=== PATIENT | male | born 1975 | race African-American/Black ===

== ENCOUNTER 2018-10-18 10:32 | Emergency (ER) | payer MEDICAID, OTHER ==
[2018-10-18 10:45] VITALS: BP 143/96
--- NOTE | 2018-10-18 11:36 | XRAY Report ---
Reason: crush injury to left thumb x 1 weeks ago. pain/swe Procedure Date: 10/18/2018 Accession Number: [id number] / [id number] Procedure: XR - Finger(s) LT CPT Code: FULL RESULT: EXAM: LEFT FIRST DIGIT RADIOGRAPHY EXAM DATE: 10/18/2018 11:03 AM. CLINICAL HISTORY: Crush injury to left thumb x 1 weeks ago. Pain/swelling. COMPARISON: XR HAND MIN 3 VIEWS 07/12/2008 3:16 PM. TECHNIQUE: 3 views. FINDINGS: Bones: Normal. No fracture or bone lesion. Joints: Normal. No subluxations. Soft Tissues: Mild prominence of soft tissue. IMPRESSION: No fracture or dislocation is detected. RADIA
[2018-10-18] MEDS ORDERED: LIDOCAINE 2% 10 ML MDV SUBQ STA (11:55)
--- NOTE | 2018-10-18 11:56 | ED Physician Documentation ---
PD HPI UPPER EXT INJURY - Stated complaint Stated Complaint: LEFT THUMB INJ - Chief complaint Chief Complaint: Trauma Ext - History obtained from History obtained from: Patient - History of Present Illness Location: Left, Finger (thumb) Where injury occurred: Work Timing - onset: How many weeks ago (1) Timing - duration: Weeks (1) Timing - details: Abrupt onset Pain level max: 5 Pain level now: 4 Improved by: Rest Worsened by: Moving, Palpating Associated symptoms: Swelling. No: Weakness, Numbness, Tingling Contributing factors: No: Anticoagulated - Additonal information Additional information: pt is right handed. Crush injury to the left thumb a week ago, increasing pain and swelling. Bruising under the nail. Review of Systems Constitutional: denies: Fever Neurologic: denies: Focal weakness, Numbness PD PAST MEDICAL HISTORY - Past Medical History Cardiovascular: Hypertension Respiratory: None Endocrine/Autoimmune: None GI: None : None HEENT: None Psych: None Musculoskeletal: None Derm: None - Past Surgical History Past Surgical History: Yes Ortho: Arthroscopic surgery - Present Medications Home Medications: Ambulatory Orders Medication Instructions Recorded Confirmed No Known Home Medications 02/23/16 10/18/18 - Allergies Allergies/Adverse Reactions: Allergies Allergy/AdvReac Type Severity Reaction Status Date / Time No Known Drug Allergies Allergy Verified 10/18/18 10:45 - Social History Does the pt smoke?: No Smoking Status: Current every day smoker Does the pt drink ETOH?: Yes Does the pt have substance abuse?: No - Immunizations Immunizations are current?: Yes - POLST Patient has POLST: No PD ED PE NORMAL - Vitals Vital signs reviewed: Yes - General General: Alert and oriented X 3 - HEENT HEENT: Moist mucous membranes - Derm Derm: Warm and dry - Extremities Extremities: Other (L thumb - 30% subungual hematoma under the nail. Also has a paronychia involving approximately three quarters of the thumb. No cellulitis or lymphangitic spread. NVI) Results - Vitals Vitals: Vital Signs - 24 hr 10/18/18 10:41 Temperature 36.4 C L Heart Rate 95 Respiratory 14 Rate Blood Pressure 143/96 H O2 Saturation 97 Oxygen O2 Source Room air Procedures - General procedure General procedure: L thumb - 2% lidocaine was used to perform a digital ring block of the left thumb. This achieved excellent anesthesia. Electrocautery was then used to trephinate the nail and into the subungual hematoma evacuated. A #11 blade scalpel was then placed under the nail fold and the pus drained from the paronychia. Patient tolerated very well. Dressing applied. No complications PD MEDICAL DECISION MAKING - ED course Complexity details: considered differential, d/w patient ED course: 42-year-old male with a left thumb paronychia and subungual hematoma. These were both treated. No significant cellulitis. Patient counseled regarding signs and symptoms for which I believe and urgent re-evaluation would be necessary. Patient with good understanding of and agreement to plan and is comfortable going home at this time This document was made in part using voice recognition software. While efforts are made to proofread this document, sound alike and grammatical errors may occur. Departure - Departure Disposition: 01 Home, Self Care Clinical Impression: Paronychia, Subungual hematoma Condition: Good Instructions: ED Fingernail Infec, ED Hematoma Subungual Follow-Up: your,doctor in 1 week [Other] Comments: Continue to soak the finger 2-3 times a day in warm water. He can apply antibiotic ointment twice a day. Use Motrin or Tylenol for pain. Return if you worsen. Discharge Date/Time: 10/18/18 12:52
[2018-10-18] MEDS ORDERED: BACITRACIN OINT TOP STA (12:21)
[2018-10-18] MEDS ORDERED: IBUPROFEN 800 MG TABLET PO STA (12:31)
== END 2018-10-18 12:52 | disposition home or self-care (01) ==
LOC: ED 10:32
DX: L03.012 Cellulitis of left finger (principal); S60.012A Contusion of left thumb without damage to nail, initial encounter; W23.0XXA Caught, crushed, jammed, or pinched between moving objects, initial encounter; Y99.0 Civilian activity done for income or pay; I10 Essential (primary) hypertension; F17.200 Nicotine dependence, unspecified, uncomplicated
CPT/HCPCS: 1040M; 11740; 73140; 99283

== ENCOUNTER 2018-10-26 10:42 | Emergency (ER) | payer OTHER, MEDICAID ==
[2018-10-26 10:53] VITALS: BP 130/87
--- NOTE | 2018-10-26 12:03 | ED Physician Documentation ---
PD HPI UPPER EXT INJURY - Stated complaint Stated Complaint: FOLLOW UP L THUMB - Chief complaint Chief Complaint: Trauma Ext - History obtained from History obtained from: Patient - History of Present Illness Location: Left (He crushed his left thumb in a drawer at work a little over 2 weeks ago. He needs paperwork done that says he can go back to work. He has no specific complaints. Feels like the thumb is all better. He has no pain.) Review of Systems Constitutional: reports: Reviewed and negative Cardiac: reports: Reviewed and negative Respiratory: reports: Reviewed and negative PD PAST MEDICAL HISTORY - Past Medical History Past Medical History: Yes Cardiovascular: Hypertension Respiratory: None Neuro: None Endocrine/Autoimmune: None GI: None : None HEENT: None Psych: None Musculoskeletal: None Derm: None - Past Surgical History Past Surgical History: Yes Ortho: Arthroscopic surgery - Present Medications Home Medications: Ambulatory Orders Medication Instructions Recorded Confirmed No Known Home Medications 02/23/16 10/18/18 - Allergies Allergies/Adverse Reactions: Allergies Allergy/AdvReac Type Severity Reaction Status Date / Time No Known Drug Allergies Allergy Verified 10/26/18 10:51 - Social History Does the pt smoke?: No Smoking Status: Never smoker Does the pt drink ETOH?: Yes Does the pt have substance abuse?: No - Immunizations Immunizations are current?: Yes - POLST Patient has POLST: No PD ED PE NORMAL - Vitals Vital signs reviewed: Yes - General General: Alert and oriented X 3, No acute distress - Extremities Extremities: Other (There is still a subungual hematoma of the left thumb, but no tenderness or limited range of motion.) - Neuro Neuro: Alert and oriented X 3, Normal speech Results - Vitals Vitals: Vital Signs - 24 hr 10/26/18 10:50 Temperature 36.7 C Heart Rate 70 Respiratory 16 Rate Blood Pressure 130/87 H O2 Saturation 98 Oxygen O2 Source Room air PD MEDICAL DECISION MAKING - ED course ED course: L&I paperwork completed with full return to duty noted. Departure - Departure Disposition: 01 Home, Self Care Clinical Impression: Subungual hematoma Condition: Good Record reviewed to determine appropriate education?: Yes Comments: Return for new or worsening symptoms. Your blood pressure was elevated today on check into the emergency department. This does not mean that you have hypertension, it is a common phenomenon to come to the emergency department and have elevated blood pressure. I recommend that you see your primary care physician within the week to have it rechecked when you are feeling better. Forms: Activity restrictions
== END 2018-10-26 12:05 | disposition home or self-care (01) ==
LOC: ED 10:42
DX: S60.012D Contusion of left thumb without damage to nail, subsequent encounter (principal); W23.0XXD Caught, crushed, jammed, or pinched between moving objects, subsequent encounter; I10 Essential (primary) hypertension
CPT/HCPCS: 1040M; 99282

== ENCOUNTER 2020-02-10 12:15 | Outpatient (CLI) | payer MEDICAID, OTHER ==
[2020-02-10 20:24] LABS: TRICHOMONAS VAGINALIS DNA NEGATIVE (NEGATIVE)
== END 2020-02-10 23:59 | disposition home or self-care (01) ==
LOC: LAB.R 12:15
PROVIDERS: ATTEND Registered Nurse
DX: R30.9 Painful micturition, unspecified (principal)
CPT/HCPCS: 87491; 87591; 87661